=== PATIENT | female | born 1990 | race Caucasian/White ===

== ENCOUNTER 2019-09-24 11:33 | Emergency (ER) | payer BC ==
[~2019-09-24] VITALS: Ht 170.2 cm; Wt 63.5 kg
[2019-09-24 11:40] VITALS: BP 112/79
--- NOTE | 2019-09-24 11:40 | NUR ---
ED Nurse Note: Patient came to ED from home c/o of congestion and night sweats x 1 day. Patient had no recent travel. Patient AxO x 4, no s/s of acute distress.
--- NOTE | 2019-09-24 12:45 | Emergency Room Report ---
History of Present Illness General Chief Complaint: Flu Like Symptoms Source: Patient Present Illness HPI 29-year-old female presents to the emergency department complaining of cough x2 days. She denies pain at this time. Patient reports some minor congestion that she has mainly in the throat area. She denies throat pain she denies significant nasal congestion. She reports body aches. She denies fevers but reports she has been having hot and cold flashes she states that she woke up last night in a cold sweat. Denies recent travel she is not vaccinated with this years flu vaccine. Denies immune compromise or significant past medical history. No other aggravating or relieving factors. Allergies: Coded Allergies: No Known Allergies (Unverified , 09/24/19) Patient History Past Medical History: see triage record Past Surgical History: none Pertinent Family History: none Last Menstrual Period: 09/21/19 Now: No Reviewed Nursing Documentation: PMH: Agreed; PSxH: Agreed Nursing Documentation-PMH Past Medical History: No Stated History Review of Systems All Other Systems: negative except mentioned in HPI Physical Exam Vital Signs Date Time Temp Pulse Resp B/P (MAP) Pulse Ox O2 Delivery O2 Flow Rate FiO2 09/24/19 11:36 99.7 97 18 112/79 (90) 96 Room Air Sp02 EP Interpretation: reviewed, normal General Appearance: no apparent distress, alert, GCS 15, non-toxic Head: normocephalic, atraumatic Eyes: bilateral eye normal inspection, bilateral eye PERRL ENT: hearing grossly normal, normal voice, TMs + canals normal, uvula midline, moist mucus membranes Neck: full range of motion Respiratory: chest non-tender, lungs clear, normal breath sounds, no respiratory distress, no accessory muscle use, no wheezing, speaking full sentences, other - persistent cough with deep inhalation Cardiovascular #1: regular rate, rhythm, normal capillary refill Musculoskeletal: normal range of motion, gait/station normal, non-tender Neurologic: alert, motor strength/tone normal, oriented x3, sensory intact, responsive, speech normal Psychiatric: judgement/insight normal Skin: no rash Lymphatic: no adenopathy Medical Decision Making PA Attestation Dr. Castro is my supervising Physician whom patient management has been discussed with. Diagnostic Impression: Primary Impression: Viral upper respiratory tract infection with cough ER Course 29-year-old female presents to the emergency department complaining of cough x2 days. She denies pain at this time. Patient reports some minor congestion that she has mainly in the throat area. She denies throat pain she denies significant nasal congestion. She reports body aches. She denies fevers but reports she has been having hot and cold flashes she states that she woke up last night in a cold sweat. Denies recent travel she is not vaccinated with this years flu vaccine. Denies immune compromise or significant past medical history. No other aggravating or relieving factors. Ddx considered but are not limited to URI, pneumonia, PE, strep pharyngitis, meningitis, flu just to name a few. Vital signs: Pt. is afebrile, the remaining VS are WNL H&PE are most consistent with URI- no meningeal signs, oropharynx is not involved, no evidence of bacterial infection at this time. ORDERS: none required at this time, the diagnosis is clinical ED INTERVENTIONS: None required at this time. --PT. EDUCATION: Discussed antibiotic resistance with inappropriate prescribing of antibiotics for viral illnesses. Discussed signs and symptoms to indicate viral illness versus bacterial illness. DISCHARGE: At this time pt. is stable for d/c to home. Will provide printed patient care instructions, and any necessary prescriptions. Care plan and follow up instructions have been discussed with the patient prior to discharge. Last Vital Signs Date Time Temp Pulse Resp B/P (MAP) Pulse Ox O2 Delivery O2 Flow Rate FiO2 09/24/19 11:36 99.7 97 18 112/79 (90) 96 Room Air Status: improved Disposition: HOME, SELF-CARE Condition: Stable Scripts Albuterol Sulfate* (ALBUTEROL SULFATE MDI*) 8.5 Gm Hfa.aer.ad 2 PUFF INH Q4H, #1 INH 0 Refills Prov: Megan Black 09/24/19 Naproxen* (NAPROXEN*) 500 Mg Tablet 500 MG ORAL TWICE A DAY for 10 Days, #20 TAB Prov: Megan Black 09/24/19 Benzonatate* (BENZONATATE*) 200 Mg Capsule 200 MG ORAL THREE TIMES A DAY for 7 Days, #21 PERLE Prov: Megan Black 09/24/19 Guaifenesin (Mucinex) 1,200 Mg Tab.er.12h 1200 MG PO Q12HR, #20 TAB Prov: Megan Black 09/24/19 Departure Forms: Return to Work Return to Work Date: Sep 27, 2019 Work Restrictions: None Other Restrictions: May return Sooner if Symptoms have resolved. Return to Full Activity: Sep 27, 2019 Patient Instructions: Upper Respiratory Infection, Adult, [id number] Additional Instructions: Take medications as directed. Drink plenty of fluids and get plenty of rest. Follow up with a Primary Care Provider in 3-5 days, even if your symptoms have resolved. Return sooner to ED if new symptoms occur, or current symptoms become worse. - Please note that this Emergency Department Report was dictated using [employer] teacher technology software, occasionally this can lead to erroneous entry secondary to interpretation by the dictation equipment. Megan Black Sep 24, 2019 12:45
[2019-09-24] MEDS ORDERED: NAPROXEN500 M2 ORAL (12:46)
[2019-09-24] MEDS ORDERED: MUCINEX1200 MG PO (12:46)
[2019-09-24] MEDS ORDERED: BENZONATATE200 MG ORAL (12:46)
[2019-09-24] MEDS ORDERED: ALBUTEROL SULF8.5 GM INH (12:47)
[2019-09-24 12:57] VITALS: BP 110/80
--- NOTE | 2019-09-24 12:57 | NUR ---
ER DISCHARGE NOTE: Patient cleared for DC by Megan GUERIN. Verbalized understanding of DC instructions. ID band removed, patient walks with steady gait. All belongings taken by patient.
== END 2019-09-24 14:00 | disposition home or self-care (01) ==
LOC: EMR 13:55
DX: J06.9 Acute upper respiratory infection, unspecified (principal); R05 Cough
CPT/HCPCS: 99282